=== PATIENT | female | born 1980 | race Caucasian/White ===

== ENCOUNTER → 2023-08-28 13:47 | Outpatient (REF) | payer OTHER, SELFPAY | LOC: OHS 13:47 | PROVIDERS: ATTENDING PHYSICIAN Nurse Practitioner Family | DX: M25.561 Pain in right knee (principal) | CPT/HCPCS: 93971 ==

== ENCOUNTER → 2023-09-24 06:56 | Outpatient (REF) | payer OTHER, SELFPAY | LOC: MRI 3T 06:56 | PROVIDERS: ATTENDING PHYSICIAN Physician Assistant | DX: M25.561 Pain in right knee (principal) | CPT/HCPCS: 73721 ==

== ENCOUNTER → 2023-11-21 16:11 | Outpatient (REF) | payer BC, SELFPAY ==
[2023-11-21 16:40] LABS: % Basophils 0.7 % (0-2); % Eosinophils 1.7 % (0-6); % Immature Granulocytes 0.3 % (0-0.5); % Lymphocytes 21.4 % (20.5-51.1); % Monocytes 6.2 % (1.7-9.3); % Neutrophils 69.7 % (42.2-75.2); Absolute Basophils 0.1 10^3/uL (0-0.2); Absolute Eosinophils 0.2 10^3/uL (0-0.7); Absolute Lymphocytes 1.9 10^3/uL (1.2-3.4); Absolute Monocytes 0.5 10^3/uL (0.1-0.6); Absolute Neutrophils 6.1 10^3/uL (1.4-6.5); Hematocrit 32.1 % (37.0-47.0); Hemoglobin 10.9 g/dL (12.0-16.0); Mean Corpuscular Hgb 27.3 pg (27.0-31.0); Mean Corpuscular Volume 80.5 fL (81.0-99.0); Mean Platelet Volume 9.5 fL (7.4-10.4); Nucleated Red Blood Cells % 0 %; Platelet Count 354 10^3/uL (130-400); Red Blood Cell Count 3.99 10^6/uL (4.20-5.40); Red Cell Dist. Width 14.5 % (11.5-14.5); White Blood Cell Count 8.7 10^3/uL (4.8-10.8)
[2023-11-21 16:52] LABS: APTT 33.6 Sec (23.4-35.0); INR 1.02; PT 13.2 Sec (11.4-14.6)
[2023-11-21 17:15] LABS: ALT (SGPT) 20 U/L (0-35); AST (SGOT) 27 U/L (14-36); Albumin 4.2 g/dl (3.5-5.0); Alkaline Phosphatase 67 U/L (38-126); Blood Urea Nitrogen 17 mg/dl (7-17); Calcium 9.1 mg/dl (8.4-10.2); Carbon Dioxide 22 mmol/L (22-30); Chloride 106 mmol/L (98-107); Glucose 105 mg/dl (70-99); Potassium 4.4 mmol/L (3.5-5.1); Sodium 138 mmol/L (135-145); Total Bilirubin 0.2 mg/dl (0.2-1.3); Total Protein 6.9 g/dl (6.3-8.2); eGFR > 60.00
[2023-11-21 17:26] LABS: Beta HCG Quantitative < 2.39 mIU/ml
== END ==
LOC: REG 16:11
PROVIDERS: ATTENDING PHYSICIAN Nurse Practitioner Women's Health
DX: N92.1 Excessive and frequent menstruation with irregular cycle (principal)
CPT/HCPCS: 80053; 84443; 84702; 85025; 85610; 85730

== ENCOUNTER → 2024-06-27 09:49 | Outpatient (REF) | payer BC, SELFPAY ==
[2024-06-27 18:52] LABS: Hepatitis B Surface Antigen Negative (Negative)
[2024-06-27 19:08] LABS: Hepatitis A Antibody, Total Negative (Negative); Hepatitis C Antibody Negative (Negative)
[2024-06-27 20:03] LABS: Hepatitis B Surface Antibody Positive
[2024-06-28 13:48] LABS: Syphilis/T. pallidum Ab Reflex Negative (Negative)
[2024-06-28 14:04] LABS: HIV Combo Negative (Negative)
== END ==
LOC: REG 09:49
PROVIDERS: ATTENDING PHYSICIAN Internal Medicine
DX: T14.8XXA Other injury of unspecified body region, initial encounter (principal); W46.1XXA Contact with contaminated hypodermic needle, initial encounter; Z77.21 Contact with and (suspected) exposure to potentially hazardous body fluids
CPT/HCPCS: 36415; 86706; 86708; 86780; 86803; 87340; 87389